=== PATIENT | female | born 1965 | race Caucasian/White ===

== ENCOUNTER → 2019-09-13 | Outpatient (CLI) | payer BC ==
--- NOTE | 2019-09-13 11:41 | XR ---
Left foot HISTORY: Pain, history of bunionectomy 3 views the left foot Postop changes are noted to the distal first metatarsal. Small ossific densities are present in the s oft tissues which appear to be chronic, is been some soft tissue swelling at this level however. Alig nment and joint spaces are maintained. No fracture or dislocation. Enthesophyte present at the insert ion of the Achilles tendon. IMPRESSION: Postop changes as described. Question soft tissue swelling at this level, correlate to ex clude cellulitis.
== END | disposition home or self-care (01) ==
LOC: RADXRMAIN 09:28
PROVIDERS: ATTEND Family Medicine
DX: M79.672 Pain in left foot (principal); Z98.890 Other specified postprocedural states

== ENCOUNTER → 2019-09-13 | Outpatient (CLI) | payer BC ==
[2019-09-13 16:19] LABS: C Reactive Protein 2.3 mg/dL (0.0-0.8); Chol/HDL Ratio 7.25; LDL Cholesterol,Calculated 249.6 mg/dL (0.0-131.0); Uric Acid 6.8 mg/dL (2.9-7.7); VLDL Calculation 69.4 mg/dL (5.00-40.00)
[2019-09-13 16:33] LABS: T4, Free (Free Thyroxine) 0.8 ng/dL (0.80-1.80)
[2019-09-13 16:42] LABS: Cyclic Citrullinated Pep IgG NEGATIVE (NEGATIVE)
== END | disposition home or self-care (01) ==
LOC: LABWHC1 09:13
PROVIDERS: ATTEND Family Medicine
DX: M25.50 Pain in unspecified joint (principal); E78.5 Hyperlipidemia, unspecified; E03.9 Hypothyroidism, unspecified
CPT/HCPCS: 36415; 80061; 84439; 84443; 84550; 85652; 86039; 86140; 86200; 86431

== ENCOUNTER → 2019-11-18 | Outpatient (CLI) | payer BC | END | disposition home or self-care (01) | LOC: LABWHC1 08:45 | PROVIDERS: ATTEND Pediatrics | DX: J02.9 Acute pharyngitis, unspecified (principal) | CPT/HCPCS: U0003; C9803 ==

== ENCOUNTER → 2020-02-12 | Outpatient (CLI) | payer BC | END | disposition home or self-care (01) | LOC: LABWHC1 10:27 | PROVIDERS: ATTEND Pediatrics | DX: R05 Cough (principal) | CPT/HCPCS: U0003; C9803 ==

== ENCOUNTER → 2021-07-19 | Outpatient (CLI) | payer OTHER ==
[2021-07-19 10:36] LABS: Basophils # (A) 0.05 X 10*3/uL (0.00-0.10); Basophils % (A) 0.6 %; Eosinophils # (A) 0.06 X 10*3/uL (0.04-0.35); Eosinophils % (A) 0.8 %; HCT 45.7 % (37.2-46.3); HGB 14.8 g/dL (12.0-15.0); Immature Grans, Automated 0.4 %; Lymphocytes # (A) 2.65 X 10*3/uL (0.90-5.00); Lymphocytes % (A) 33.8 %; MCH 27.2 pg (27.0-32.0); MCHC 32.4 g/dL (32.0-37.0); MCV 83.9 fL (80.0-97.0); Mean Platelet Volume 10.7 fL (9.5-12.2); Monocytes # (A) 0.34 X 10*3/uL (0.20-1.00); Monocytes % (A) 4.3 %; NRBC Per 100 WBC 0 /100 WBCS (0.0-0.0); Neutrophils % (A) 60.1 %; Platelet Count 273 X 10*3/uL (140-440); RBC 5.45 X 10*6/uL (4.10-5.20); RDW 16.4 % (11.5-14.5); WBC 7.83 X 10*3/uL (4.50-10.00)
[2021-07-19 10:45] LABS: Chol/HDL Ratio 9.37 Ratio; Follicle Stimulating Hormone 37.6 mIU/mL; LDL Cholesterol,Calculated 239.3 mg/dL (0.0-131.0); Luteinizing Hormone 22.5 mIU/mL
[2021-07-19 11:01] LABS: % Iron Saturation 11.44 (12.00-45.00); ALT 28 U/L (8-44); AST 28 U/L (13-35); African American GFR (CKD) 120.6 (60.0-200.0); Albumin 4.9 g/dL (3.8-4.9); Albumin/Globulin Ratio 1.75 (1.60-3.17); Alkaline Phosphatase 89 U/L (41-126); BUN/Creat Ratio 8.67 Ratio (12.00-20.00); Blood Urea Nitrogen 5.2 mg/dL (9.0-27.0); Carbon Dioxide 24.4 mmol/L (20.0-27.5); Chloride 102 mmol/L (96-109); Creatine Kinase 35 U/L (26-186); Globulin 2.8 g/dL (1.6-3.3); Glucose 98 mg/dL (70-110); Iron 50 ug/dL (50-170); Non-African American GFR(CKD) 104.1 (60.0-200.0); Potassium 4.5 mmol/L (3.5-5.5); Sodium 140 mmol/L (135-145); Total Iron Binding Capacity 440 ug/dL (228-460); Total Protein 7.7 g/dL (6.2-8.2)
[2021-07-19 11:17] LABS: Erythrocyte Sedimentation Rate 31 mm/Hr (0-30)
[2021-07-19 13:51] LABS: Estradiol <5.0 pg/mL
[2021-07-19 14:33] LABS: Rheumatoid Factor, Qnt 10 IU/mL (0-15)
[2021-07-19 15:34] LABS: Anti-DNA, DS unit <1.0 IU/mL; Anti-Smith Ab Interp NEGATIVE (NEGATIVE); Cyclic Citrull Pep IgG Unit 0.7 U/mL; Cyclic Citrullinated Pep IgG NEGATIVE (NEGATIVE); DNA Double-Stranded NEGATIVE (NEGATIVE)
== END | disposition home or self-care (01) ==
LOC: LABWHC1 08:00
PROVIDERS: ATTEND Nurse Practitioner Family
DX: Z00.01 Encounter for general adult medical examination with abnormal findings (principal); E55.9 Vitamin D deficiency, unspecified; E89.41 Symptomatic postprocedural ovarian failure; M25.50 Pain in unspecified joint; Z13.1 Encounter for screening for diabetes mellitus
CPT/HCPCS: 36415; 80053; 80061; 82306; 82550; 82670; 82728; 83001; 83002; 83036; 83540; 83550; 84439; 84443; 85025; 85652; 86038; 86140; 86200; 86225; 86235; 86431

== ENCOUNTER → 2023-02-21 | Outpatient (CLI) | payer OTHER ==
--- NOTE | 2023-02-21 17:26 | CA ---
Exercise Stress Test Report Name: Amparo Theodore Exam Date: 02/21/2023 10:52 Exam Location: [facility] Ht (in): 64 Wt (lb): 140 BSA: 1.68 Ordering Phys: Kody Wong MD Referring Phys: Shawanda Clark [facility] Technologist: Hebert Astorga Age: 57 Gender: F : 1965 Procedure CPT: Indications: R94.31 ABNORMAL EKG ICD-10 Codes: Patient History: Medications: synthroid, rovastatin, CoQ10, Vit D Meds past 24 hrs: Pretest Chest Pain: STRESS TEST Ashutosh Protocol Exercise Duration (min:sec): 05:[address] Depressions (mm): Angina Score: Obrien Score: Resting HR (bpm): 108 Peak HR (bpm): 162 Resting BP (mmHg): 118 / 75 Peak BP (mmHg): 200 / 72 MPHR: 165 Target HR: 140 % MPHR: 98 METS: 7.1 Total Dose: Peak Dose: Atropine: Double Product: 09329 BP Response: Stress Termination: Reached target heart rate Stress Symptoms: No chest pain or symptoms Stress Summary: ECG ANALYSIS Resting ECG: Normal sinus rhythm normal axis normal intervals Stress ECG: No significant ST segment depression CONCLUSIONS Limited exercise tolerance Negative stress test by EKG criteria Dr. Yung Aguayo MD (Electronically Signed) Final Date: 21 February 2023 17:25
== END | disposition home or self-care (01) ==
LOC: RADNMMAIN 10:28
PROVIDERS: ATTEND Family Medicine
DX: R94.31 Abnormal electrocardiogram [ECG] [EKG] (principal)
CPT/HCPCS: 93017

== ENCOUNTER → 2023-11-02 | Outpatient (CLI) | payer BC, OTHER ==
--- NOTE | 2023-11-02 17:25 | CT ---
EXAMINATION TYPE: CT abdomen pelvis wo con DATE OF EXAM: 11/02/2023 COMPARISON: None HISTORY: 58-year-old female R31.29, other MICROSCOPIC HEMATURIA, flank pain x [address] DLP: 316.3 mGycm. Automated exposure control for dose reduction was used. TECHNIQUE: Contiguous axial scanning of the abdomen and pelvis without IV contrast. Coronal and sagit michael reconstructions performed. FINDINGS: The heart is normal size without pericardial effusion. There is a tiny hiatal hernia. Some emphysemat ous change noted in the lower lungs. No pleural effusion. Liver mildly enlarged at 18.3 cm. No abnormal gallbladder distention. Right adrenal gland, kidneys, spleen, and pancreas show no gross abnormality by noncontrast. Low density nodularity left adrenal gland measuring 1.9 cm most compatible with a benign adrenal evans yolanda. Prominent retroperitoneal nodes in the left periaortic region measuring up to 1.0 cm are nonspecific, probably reactive/post inflammatory. No mesenteric adenopathy. No dilated small bowel, free fluid, or free air. Normal appendix. Mild scattered stool. Left-sided colonic diverticulosis. No pericolonic inflammatory change. Bladder urine distended. Uterus surgically absent. Small bilateral ovaries are visualized. Left-sided pelvic phlebolith. No abnormal fluid collection in the pelvis or pelvic lymphadenopathy. Bones: Mild facet arthropathy towards the left in the lower lumbar spine. No osseous destructive proc ess. IMPRESSION: 1. No nephrolithiasis or hydronephrosis is seen. 2. A 1.9 cm lipid rich left adrenal adenoma demonstrated. 3. Mild hepatomegaly at 18.3 cm. 4. Tiny hiatal hernia, emphysema in the visualized lower lungs, and left-sided colonic diverticulosi s.
== END | disposition home or self-care (01) ==
LOC: RADCTMAIN 15:14
PROVIDERS: ATTEND Family Medicine
DX: R31.29 Other microscopic hematuria (principal); D35.02 Benign neoplasm of left adrenal gland; R16.0 Hepatomegaly, not elsewhere classified; K44.9 Diaphragmatic hernia without obstruction or gangrene; K57.30 Diverticulosis of large intestine without perforation or abscess without bleeding
CPT/HCPCS: 74176

== ENCOUNTER → 2024-09-13 | Outpatient (CLI) | payer OTHER ==
--- NOTE | 2024-09-13 15:25 | CT ---
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 CT DLP: [address] CTDI: mGy Automated exposure control for dose reduction was used. FINDINGS: The lung bases are clear. The gallbladder is normal without distention, wall thickening, pericholecystic fluid or gallstones. T here is no biliary ductal dilatation. There is no focal mass of the liver, pancreas or spleen. There is borderline hepatomegaly. There is a stable 17 mm hypodense nodule of the left adrenal gland consistent with a benign adenoma. There is no solid renal mass or hydronephrosis and there is homogeneous contrast enhancement of the r enal parenchyma. The caliber the abdominal aorta is normal is no retroperitoneal adenopathy or hemorr mili. The bowel loops are normal in caliber and there is no evidence of dilatation or obstruction. No infla mmatory changes are identified in the bowel wall or mesentery. There is no free intraperitoneal air or fluid. No pelvic mass, free fluid, abscess or adenopathy. There are surgical absence of the uterus. The osseous structures and soft tissues are intact. IMPRESSION: 1. Stable 17 mm left adrenal mass most likely a benign adenoma. 2. Borderline hepatomegaly. [facility], , 09/13/2024 3:22 PM
== END | disposition home or self-care (01) ==
LOC: RADCTMAIN 13:16
PROVIDERS: ATTEND Family Medicine
DX: D35.02 Benign neoplasm of left adrenal gland (principal); E27.8 Other specified disorders of adrenal gland
CPT/HCPCS: 74177; Q9967